=== PATIENT | male | born 1980 | race Hispanic/Latino ===

== ENCOUNTER 2018-03-10 12:39 | Emergency (ER) | payer MEDICAID, OTHER ==
[2018-03-10 12:40] VITALS: BMI 26.9
== END 2018-03-10 13:08 | disposition left against medical advice (07) ==
LOC: ED 12:39
DX: Z02.89 Encounter for other administrative examinations (principal); R21 Rash and other nonspecific skin eruption

== ENCOUNTER 2018-06-07 20:49 | Emergency (ER) | payer MEDICAID ==
[2018-06-07 20:50] VITALS: BMI 26.9
[2018-06-07 21:08] VITALS: RESP 20; TEMP 98.7; O2SAT 98
--- NOTE | 2018-06-07 21:16 | ED PDOC ---
Arrival/HPI - General Chief Complaint: Flu-like Symptoms Time Seen by Provider: 06/07/18 20:55 Historian: Patient - History of Present Illness Narrative History of Present Illness (Text): 06/07/18 21:12 Hung Calixto is a 38 year old male, whose past medical history includes asthma, substance abuse, alcohol abuse, and depression, who presents to the Emergency department complaining of flu-like symptoms. Patient states he has b een experiencing chest congestion, cough, subjective fever, and chills for the past few days. Patient reports he has been taking Mucinex and [id number] cold/cough medicine, with no significant relief. Patient also reports diarrhea for the past 2 days. Patient denies any chest pain, shortness of breath, nausea, vomiting, urinary symptoms, back pain, neck pain, headache, dizziness, or any other complaints. Symptom Onset: Gradual Symptom Course: Unchanged Activities at Onset: Light Context: Home Past Medical History - Past History Past History: No Previous - Infectious Disease Hx of Infectious Diseases: None - Tetanus Immunization Tetanus Immunization: Unknown - Cardiac Hx Cardiac Disorders: No Hx Hypertension: Yes - Pulmonary Hx Tuberculosis: No - Neurological HX Cerebrovascular Accident: No Hx Seizures: No - HEENT Hx HEENT Disorder: No - Renal Hx Renal Disorder: No - Endocrine/Metabolic Hx Endocrine Disorders: No - Hematological/Oncological Hx Cancer: No - Integumentary Hx Dermatological Disorder: No - Musculoskeletal/Rheumatological Hx Musculoskeletal Disorders: No Hx Falls: No - Gastrointestinal Hx Gastrointestinal Disorders: No - Genitourinary/Gynecological Hx Sexually Transmitted Diseases: No - Psychiatric Hx Anxiety: Yes Hx Depression: Yes Hx Substance Use: Yes - Anesthesia Hx Anesthesia: No Hx Anesthesia Reactions: No - Suicidal Assessment Feels Threatened In Home Enviroment: No Family/Social History - Physician Review Nursing Documentation Reviewed: Yes Family/Social History: No Known Family HX Smoking Status: Light Smoker < 10 Cigarettes Daily Hx Alcohol Use: No Hx Substance Use: Yes Substance used: heroin, crack Allergies/Home Meds Allergies/Adverse Reactions: Allergies No Known Allergies Allergy (Verified 10/25/17 00:09) Review of Systems - Physician Review All systems were reviewed & negative as marked: Yes - Review of Systems Constitutional: Fevers, Other (+chills) Eyes: Normal Respiratory: Cough, Sputum, Other (+chest congestion) Gastrointestinal: Diarrhea. absent: Abdominal Pain, Vomiting Genitourinary Male: Normal. absent: Dysuria, Frequency, Hematuria, Urinary Output Changes Musculoskeletal: Normal. absent: Back Pain, Neck Pain Skin: Normal. absent: Rash Neurological: Normal. absent: Headache, Dizziness Endocrine: Normal Hemo/Lymphatic: Normal Psychiatric: Normal Physical Exam Vital Signs Reviewed: Yes Vital Signs Temp Pulse Resp BP Pulse Ox 06/07/18 20:57 98.7 F 98 H 20 121/78 98 Temperature: Afebrile Blood Pressure: Normal Pulse: Regular Respiratory Rate: Normal Appearance: Positive for: Well-Appearing, Non-Toxic, Comfortable Pain Distress: None Mental Status: Positive for: Alert and Oriented X 3 - Systems Exam Head: Present: Atraumatic, Normocephalic Pupils: Present: PERRL Extroacular Muscles: Present: EOMI Conjunctiva: Present: Normal Mouth: Present: Moist Mucous Membranes Neck: Present: Normal Range of Motion Respiratory/Chest: Present: Wheezes. No: Respiratory Distress, Accessory Muscle Use Cardiovascular: Present: Regular Rate and Rhythm, Normal S1, S2. No: Murmurs Abdomen: No: Tenderness, Distention, Peritoneal Signs Back: Present: Normal Inspection Upper Extremity: Present: Normal Inspection. No: Cyanosis, Edema Lower Extremity: Present: Normal Inspection. No: Edema Neurological: Present: GCS=15, CN II-XII Intact, Speech Normal Skin: Present: Warm, Dry, Normal Color. No: Rashes Psychiatric: Present: Alert, Oriented x 3, Normal Insight, Normal Concentration Medical Decision Making ED Course and Treatment: 06/07/18 21:12 Impression: 38 year old male complaining of flu-like symptoms, chest congestion, cough, subjective fever/chills, and diarrhea. Plan: -- Chest X-ray -- Rapid influenza -- Duoneb -- Reassess and disposition Prior Visits: Notes and results from previous visits were reviewed. Progress Notes: 06/07/18 22:52 Chest X-ray reviewed, shows no acute processes. - Lab Interpretations I have reviewed the lab results: Yes - RAD Interpretation Content Manager: ED Physician - Scribe Statement The provider has reviewed the documentation as recorded by the Mckinley Kim Provider Scribe Attestation: All medical record entries made by the Scribe were at my direction and personally dictated by me. I have reviewed the chart and agree that the record accurately reflects my personal performance of the history, physical exam, medical decision making, and the department course for this patient. I have also personally directed, reviewed, and agree with the discharge instructions and disposition. Disposition/Present on Arrival - Present on Arrival Any Indicators Present on Arrival: No History of DVT/PE: No History of Uncontrolled Diabetes: No Urinary Catheter: No History of Decub. Ulcer: No History Surgical Site Infection Following: None - Disposition Have Diagnosis and Disposition been Completed?: Yes Diagnosis: Bronchitis Disposition: HOME/ ROUTINE Disposition Time: 00:35 Condition: GOOD Discharge Instructions (ExitCare): Acute Bronchitis Prescriptions: Albuterol HFA [Ventolin HFA] 1 puff IH QID #1 puff Azithromycin [Zithromax] 250 mg PO DAILY #4 tab Forms: [employer] ([place])
[2018-06-07] MEDS: Albuterol-Ipratrop 3 mg / 0.5 (3 ml) UD IH SCH ×3 (21:45→22:04)
[2018-06-08 00:37] VITALS: BP 148/76; PULSE 91
--- NOTE | 2018-06-08 09:01 | RAD ---
Date of service: 06/07/2018 HISTORY: cough COMPARISON: No prior. TECHNIQUE: Chest PA and lateral FINDINGS: LUNGS: No active pulmonary disease. PLEURA: No significant pleural effusion identified. No pneumothorax apparent. CARDIOVASCULAR: No aortic atherosclerotic calcification present. Normal cardiac size. No pulmonary vascular congestion. OSSEOUS STRUCTURES: No significant abnormalities. VISUALIZED UPPER ABDOMEN: Normal. OTHER FINDINGS: None. IMPRESSION: No active disease.
== END 2018-06-08 00:36 | disposition home or self-care (01) ==
LOC: ED 20:49
DX: J40 Bronchitis, not specified as acute or chronic (principal); F17.210 Nicotine dependence, cigarettes, uncomplicated

== ENCOUNTER 2018-08-14 21:59 | Emergency (ER) | payer MEDICAID ==
[2018-08-14 22:18] VITALS: BMI 28.2
[2018-08-14 23:16] VITALS: BP 108/73; PULSE 88; RESP 18; TEMP 97.8; O2SAT 97
--- NOTE | 2018-08-14 23:34 | ED PDOC ---
Arrival/HPI - General Chief Complaint: Back Pain Time Seen by Provider: 08/14/18 22:06 Historian: Patient - History of Present Illness Narrative History of Present Illness (Text): 08/14/18 23:31 38yo male with pmhx of depression who present with complaint of lower back pain since this morning. 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 Describes pain as spasm. States he took Ibuprofen at home without relieve. Pain is worse with any movement. Denies focal weakness, urinary/fecal incontinence, urinary symptoms, abdominal pain, hematuria, any other complaint. Past Medical History - Provider Review Nursing Documentation Reviewed: Yes - Past History Past History: No Previous - Infectious Disease Hx of Infectious Diseases: None - Tetanus Immunization Tetanus Immunization: Unknown - Cardiac Hx Cardiac Disorders: Yes Hx Hypertension: Yes - Pulmonary Hx Respiratory Disorders: No - Neurological Hx Neurological Disorder: No - HEENT Hx HEENT Disorder: No - Renal Hx Renal Disorder: No - Endocrine/Metabolic Hx Endocrine Disorders: No - Hematological/Oncological Hx Blood Disorders: No - Integumentary Hx Dermatological Disorder: No - Musculoskeletal/Rheumatological Hx Musculoskeletal Disorders: No - Gastrointestinal Hx Gastrointestinal Disorders: No - Genitourinary/Gynecological Hx Genitourinary Disorders: No - Psychiatric Hx Psychophysiologic Disorder: Yes Hx Anxiety: Yes Hx Depression: Yes Hx Substance Use: Yes - Anesthesia Hx Anesthesia: No Hx Anesthesia Reactions: No - Suicidal Assessment Feels Threatened In Home Enviroment: No Family/Social History - Physician Review Nursing Documentation Reviewed: Yes Family/Social History: Unknown Family HX Smoking Status: Light Smoker < 10 Cigarettes Daily Hx Alcohol Use: No Hx Substance Use: Yes Substance used: heroin, crack Allergies/Home Meds Allergies/Adverse Reactions: Allergies No Known Allergies Allergy (Verified 10/25/17 00:09) Review of Systems - Physician Review All systems were reviewed & negative as marked: Yes - Review of Systems Constitutional: Normal Eyes: Normal ENT: Normal Respiratory: Normal Cardiovascular: Normal Gastrointestinal: Normal Genitourinary Male: Normal Musculoskeletal: Back Pain Skin: Normal Neurological: Normal Endocrine: Normal Hemo/Lymphatic: Normal Psychiatric: Normal Physical Exam Vital Signs Reviewed: Yes Vital Signs Temp Pulse Resp BP Pulse Ox 08/14/18 23:15 97.8 F 88 18 108/73 97 08/14/18 22:06 98.8 F 89 20 137/84 99 Temperature: Afebrile Blood Pressure: Normal Pulse: Regular Respiratory Rate: Normal Appearance: Positive for: Well-Appearing, Non-Toxic, Comfortable Pain Distress: None Mental Status: Positive for: Alert and Oriented X 3 - Systems Exam Head: Present: Atraumatic, Normocephalic Pupils: Present: PERRL Extroacular Muscles: Present: EOMI Conjunctiva: Present: Normal Mouth: Present: Moist Mucous Membranes Neck: Present: Normal Range of Motion Respiratory/Chest: Present: Clear to Auscultation, Good Air Exchange. No: Respiratory Distress, Accessory Muscle Use Cardiovascular: Present: Regular Rate and Rhythm, Normal S1, S2. No: Murmurs Abdomen: No: Tenderness, Distention, Peritoneal Signs Back: Present: Paraspinal Tenderness (Diffuse paralumbar tenderness), Pain with Leg Raise (B/L). No: Midline Tenderness Upper Extremity: Present: Normal Inspection. No: Cyanosis, Edema Lower Extremity: Present: Normal Inspection. No: Edema Neurological: Present: GCS=15, CN II-XII Intact, Speech Normal Skin: Present: Warm, Dry, Normal Color. No: Rashes Psychiatric: Present: Alert, Oriented x 3, Normal Insight, Normal Concentration Medical Decision Making ED Course and Treatment: 08/15/18 00:19 38yo male in ED for lower back pain. He noted history of similar pain. He ambulated to ED. He was neurologically intact Per the RN, he declined Toradol in ED and took Flexeril On r evaluation he notes improvement of his pain. he was DC home with flexeril. Advised to continue with Ibuprofen as needed. Referred to his PMD. - Medication Orders Current Medication Orders: Discontinued Medications Cyclobenzaprine HCl (Flexeril) 10 mg PO STAT STA Stop: 08/14/18 22:38 Last Admin: 08/14/18 22:45 Dose: 10 mg Diazepam (Valium) 5 mg PO ONCE ONE; Protocol Stop: 08/14/18 22:14 Last Admin: 08/14/18 22:33 Dose: Not Given Non-Admin Reason: Patient Refused Ketorolac Tromethamine (Toradol) 60 mg IM STAT STA Stop: 08/14/18 22:14 Last Admin: 08/14/18 22:42 Dose: Not Given Non-Admin Reason: Patient Refused Disposition/Present on Arrival - Present on Arrival Any Indicators Present on Arrival: No History of DVT/PE: No History of Uncontrolled Diabetes: No Urinary Catheter: No History of Decub. Ulcer: No History Surgical Site Infection Following: None - Disposition Have Diagnosis and Disposition been Completed?: Yes Diagnosis: Back pain Disposition: HOME/ ROUTINE Disposition Time: 23:35 Patient Plan: Discharge Condition: STABLE Discharge Instructions (ExitCare): Low Back Pain (DC) Additional Instructions: Follow up with your doctor/orthopedist Return to ED for any new or worsening symptoms Prescriptions: Cyclobenzaprine [Cyclobenzaprine HCl] 10 mg PO TID #12 tab Referrals: PCP,NO [Primary Care Provider] - Follow up with primary Pablo Williamson III, MD [Medical Doctor] - Follow up with primary Forms: [employer] ([place]ian)
== END 2018-08-14 23:40 | disposition home or self-care (01) ==
LOC: ED 21:59
DX: M54.5 Low back pain (principal); F17.210 Nicotine dependence, cigarettes, uncomplicated; I10 Essential (primary) hypertension